=== PATIENT | female | born 1985 | race Caucasian/White ===

== ENCOUNTER 2019-02-25 02:04 | Emergency (ER) | payer MEDICAID ==
[~2019-02-25] VITALS: Ht 170.2 cm; Wt 69.4 kg
[2019-02-25 02:22] VITALS: BP 124/75
--- NOTE | 2019-02-25 02:22 | NUR ---
TO BED # 11 AMBULATORY
[2019-02-25] MEDS ORDERED: predniSONE 20 MG TAB PO ONE (02:50)
[2019-02-25] MEDS ORDERED: diphenhydrAMINE 50 MG/ML VIAL IM ONE (02:50)
[2019-02-25] MEDS ORDERED: FAMOTIDINE 20 MG TAB PO ONE (02:50)
--- NOTE | 2019-02-25 02:54 | NUR ---
33 Y/O FEMALE PRESENTS TO ED, C/O RASH AROUND TORSO AND BILAT ARMS. PT STATES RASH APPEARED W[employer]NA[employer] VAN. PT TOOK BENADRYL BUT UNABLE TO ALLEVIATE RASH. NO SOB. PT C/O OF ITCHING. PT DENIES ANY ALLERGIES. PT VSS. ERMD AWARE. WILL CONTINUE TO MONITOR.
[2019-02-25 03:25] VITALS: BP 124/75
--- NOTE | 2019-02-25 03:25 | NUR ---
PT DISCHARGED WITH PAPERWORK. RX EPIPEN, PEPCIC, PREDINISONE, BENADRYL. EDUCATED PT REGARDING MEDICATIONS AND S/E. EDUCATED PT REGARDING D/C DIAGNOSIS. PT VERBALIZED UNDERSTANDING OF TEACHING. TOLD PT TO FOLLOW UP WITH PCP AND WHEN TO RETURN TO ED. PT VSS. ALL QUESTIONS ANSWERED.
== END 2019-02-25 03:25 | disposition home or self-care (01) ==
LOC: MED 02:04
DX: R21 Rash and other nonspecific skin eruption (principal); L29.9 Pruritus, unspecified; L53.9 Erythematous condition, unspecified
CPT/HCPCS: 96372; 99283; J1200; J7512